=== PATIENT | male | born 1945 | race Caucasian/White ===

== ENCOUNTER 2021-04-16 18:01 | Inpatient (IN) | payer MEDICARE, OTHER ==
[~2021-04-16] VITALS: Ht 175.3 cm; Wt 91.8 kg
[~2021-04-16 18:01] MED LIST: CETI5; ESOM20 PO; RAPAFLOW PO
[2021-04-16 18:49] LABS: BASOPHILS ABSOLUTE AUTO 0.04 K/mm3 (0.00-0.23); BASOPHILS PERCENT AUTO 0 % (0-2); EOSINOPHILS ABSOLUTE AUTO 0.03 K/mm3 (0.00-0.68); EOSINOPHILS PERCENT AUTO 0 % (0-6); Hematocrit 45.3 % (37.0-53.0); Hemoglobin 16.8 g/dL (13.5-17.5); IMMATURE GRAN ABSOLUTE AUTO 0.03 K/mm3 (0.00-0.10); IMMATURE GRAN PERCENT AUTO 0 % (0-1); LYMPHOCYTES ABSOLUTE AUTO 2.24 K/mm3 (0.84-5.20); LYMPHOCYTES PERCENT AUTO 24 % (21-46); MONOCYTES PERCENT AUTO 10 % (4-13); Mean Corpuscular HGB 31.7 pg (26.0-34.0); Mean Corpuscular HGB Conc 37.1 g/dL (31.5-36.5); Mean Corpuscular Volume 86 fL (80-100); Mean Platelet Volume 10.5 fL (9.1-12.4); NEUTROPHILS ABSOLUTE AUTO 6.27 K/mm3 (1.96-9.15); NEUTROPHILS PERCENT AUTO 66 % (41-73); Platelet Count 233 K/mm3 (150-400); RDW Coefficient Variation 12.2 % (11.7-14.2); RDW Standard Deviation 37.5 fL (35.1-46.3); White Blood Cell Count 9.51 K/mm3 (4.00-11.30)
[2021-04-16 19:11] LABS: Albumin, Blood 3.1 g/dL (3.4-5.0); Albumin/Globulin Ratio 0.8 (0.8-1.8); Bilirubin, Total 0.9 mg/dL (0.1-1.0); Bun/Creatinine Ratio 20.5 (12.0-20.0); Calcium, Blood 9.4 mg/dL (8.5-10.1); Creatinine, Blood 2.39 mg/dL (0.60-1.20); Globulin, Blood 3.9 g/dL (2.2-4.0); Potassium, Blood 2.7 mmol/L (3.5-5.5)
[2021-04-16 20:33] LABS: Magnesium, Blood 2.5 mg/dL (1.6-2.4); Phosphorus, Blood 3.6 mg/dL (2.5-4.9)
[2021-04-16 20:51] LABS: Source, Urine Voided
[2021-04-16 20:53] LABS: Bilirubin, Urine Neg (Neg); Blood, Urine Neg (Neg); Glucose Qualitative, Urine 4+ (Neg); Ketones, Urine Neg (Neg); Leukocyte Esterase, Urine Neg (Neg); Nitrite, Urine Neg (Neg); Protein, Urine Neg (Neg); Urobilinogen, Urine NORM (Normal)
[2021-04-16] MEDS ORDERED: BUME2 PO (20:54)
[2021-04-16] MEDS ORDERED: ALFUZOSIN HCL10 MG PO (20:54)
[2021-04-16 20:55] LABS: Appearance, Urine Clear (Clear); Color, Urine Yellow (P-Yellow)
[2021-04-16] MEDS ORDERED: Avodart0.5 MG PO (20:55)
[2021-04-16] MEDS ORDERED: METO5 PO (20:55)
[2021-04-16] MEDS ORDERED: Nexium40 MG PO (20:55)
[2021-04-16] MEDS ORDERED: FINA5 PO ×2 (20:55)
[2021-04-16] MEDS ORDERED: KLOR-CON 1010 ME4 PO (20:56)
[2021-04-16] MEDS ORDERED: LOSARTAN POTASS25 M2 PO (20:56)
[2021-04-16 22:27] LABS: Glucose, Blood 701 mg/dL (70-99)
[2021-04-16 22:37] LABS: Potassium, Blood 2.4 mmol/L (3.5-5.5)
[2021-04-16 22:56] LABS: Bun/Creatinine Ratio 19.9 (12.0-20.0); Calcium, Blood 9.2 mg/dL (8.5-10.1); Creatinine, Blood 2.46 mg/dL (0.60-1.20)
[2021-04-17 00:28] LABS: Glucose, Blood 581 mg/dL (70-99)
--- NOTE | 2021-04-17 00:30 | NUR ---
PT ARRIVAL PT ARRIVES FROM ER AT THIS TIME. PT TRANSFERS FROM ER GURNEY TO OUR GURNEY WITH MINIMAL ASSIST. PT DENIES DIZZINESS. PT IS ALERT AND ORIENTED. PT DENIES PAIN OR DISCOMFORT. LUNG SOUNDS ARE CLEAR THROUGHOUT. BOWEL TONES ACTIVE. SEE SHIFT ASSESSMENT.
[2021-04-17 00:32] LABS: SARS-Cov-2 (COVID-19) PCR, MMC NEGATIVE (NEGATIVE)
[2021-04-17 02:17] LABS: Bun/Creatinine Ratio 20.3 (12.0-20.0); Calcium, Blood 9.1 mg/dL (8.5-10.1); Creatinine, Blood 2.31 mg/dL (0.60-1.20); Potassium, Blood 2.8 mmol/L (3.5-5.5)
--- NOTE | 2021-04-17 06:24 | NUR ---
SHIFT SUMMARY PT SLEPT ON AND OFF THROUGHOUT THE NIGHT. REMAINS ALERT AND ORIENTED. PT ON INSULIN GTT AT 3UNITS/HR. LUNGS REMAIN CLEAR, OCCASIONAL COUGH. BOWEL TONES ACTIVE. PT USES CALL LIGHT APPROPRIATELY. STANDS AT BEDSIDE WITH MINIMAL ASSISTANCE TO USE URINAL. SHIFT OUTPUT OF 600ML. URINE IS CLEAR/YELLOW. PT DENIES PAIN OR DISCOMFORT. WILL REPORT TO ONCOMING RN.
[2021-04-17 06:35] LABS: Bun/Creatinine Ratio 20.4 (12.0-20.0); Calcium, Blood 8.9 mg/dL (8.5-10.1); Creatinine, Blood 2.11 mg/dL (0.60-1.20); Potassium, Blood 2.8 mmol/L (3.5-5.5)
--- NOTE | 2021-04-17 13:33 | NUR ---
WHILE MEASURING CARDIAC INTERVALS, NOTED THAT QT WAS ON THE LONG SIDE AT 0.48. CALL TO DR BRAVO REGARDING THIS. DR ORDERED MAG LEVEL AND STATES HE WILL REVIEW EMAR FOR POSSIBLE PROLONGING MEDS. NO ACUTE NEEDS OR CONCERNS AT THIS TIME.
--- NOTE | 2021-04-17 13:54 | NUR ---
REPORT CALLED TO WESLEY MORA. PT TRANSFERRED TO ROOM 303 VIA WHEEL CHAIR. NO ACUTE NEEDS OR CONCERNS.
--- NOTE | 2021-04-17 13:58 | NUR ---
Assumed Care Received report from Juanis, COMBINER OPERATOR. Arrived to unit via w/c with 2 bags of belongings. Self transferred from w/c to bed independently. A/Ox4. SCD's hooked. Bed in lowest position, call light near. Water given. WCTM.
[2021-04-17 15:29] LABS: Magnesium, Blood 2.5 mg/dL (1.6-2.4); Potassium, Blood 2.6 mmol/L (3.5-5.5)
--- NOTE | 2021-04-17 16:12 | NUR ---
40 MEQ POTASSIUM IV REPEAT MAG/K REVEALED 2.5/2.[address] URIBE NOTIFIED PER HIS REQUEST. RECEIVED T.O. FROM DR. URIBE TO GIVE 40 MEQ POTASSIUM IV ONCE. EMAR UPDATED.
--- NOTE | 2021-04-17 17:13 | NUR ---
Shift Summary A/Ox4, pleasant and cooperative with care. Denies chest pain, nausea, vomiting. Up with SBA, uses urinal independently. Tolerating PO well. Blood sugars remain high, medicated per EMAR. NS @ 75 continuous. Upon discharge, patient and will require diabetes education and info on ADA diet because cooks most of the meals at home. No acute changes since assumption of care. WCTM.
--- NOTE | 2021-04-17 21:35 | NUR ---
HOSPITALIST CONTACTED REGARDING PT'S CBG OF 367. ORDER FOR 6 UNITS OF HUMALOG OBTAINED AND ADMINISTER. WILL CONTINUE TO MONITOR PT'S CBG.
--- NOTE | 2021-04-17 22:00 | NUR ---
ASSUMED CARE. PRECEPTORING CLAIR OLSON. AGREED WITH HER ASSESSMENT. PATIENT DENIES ANY CONCERNS OR NEEDS AT THIS TIME. CALL LIGHT IN REACH.
[2021-04-18 04:51] LABS: Hematocrit 39.1 % (37.0-53.0); Hemoglobin 14.2 g/dL (13.5-17.5)
[2021-04-18 05:11] LABS: Albumin, Blood 2.3 g/dL (3.4-5.0); Anion Gap 4 mmol/L (6-16); Blood Urea Nitrogen 32 mg/dL (8-24); Bun/Creatinine Ratio 23.5 (12.0-20.0); CO2, Blood 33 mmol/L (21-32); Calcium, Blood 8.2 mg/dL (8.5-10.1); Chloride, Blood 100 mmol/L (98-108); Creatinine, Blood 1.36 mg/dL (0.60-1.20); Glomerular Filtration Rate 51 (60-); Glucose, Blood 241 mg/dL (70-99); Magnesium, Blood 2.7 mg/dL (1.6-2.4); Phosphorus, Blood 2.2 mg/dL (2.5-4.9); Potassium, Blood 2.9 mmol/L (3.5-5.5); Sodium, Blood 137 mmol/L (136-145)
--- NOTE | 2021-04-18 06:04 | NUR ---
SUBSTATION DESIGNER SUMMARY ADMITTED FOR DEHYDRATION. PT IS FULL CODE. PT HAD A HIGH BLOOD SUGAR OF 367 - ORDER OBTAINED FOR 6 UNITS OF HUMALOG WITH IMPROVEMENT IN CBG TO 266 OVER 5 HOURS. PT POTASSIUM WAS LOW SO AN ORDER FOR THREE IV POTASSIUM CHLORIDE OBTAINED AND ADMINISTERED. PT HAD NO COMPLAINTS OF CHEST PAIN AND RESTED COMFORTABLY THROUGHOUT THE SHIFT. NO OTHER CONCERNS THIS SHIFT.
--- NOTE | 2021-04-18 18:07 | NUR ---
SHIFT SUMMARY CONTINUED ELECTROLYTE REPLACEMENT. SELF ADMINISTERED INSULIN X3 AND TESTED BLOOD GLUCOSE WITH GLUCOMETER X1.
[2021-04-19 04:50] LABS: Hematocrit 38.2 % (37.0-53.0)
[2021-04-19 05:10] LABS: Albumin, Blood 2.2 g/dL (3.4-5.0); Anion Gap 5 mmol/L (6-16); Blood Urea Nitrogen 24 mg/dL (8-24); Bun/Creatinine Ratio 20.7 (12.0-20.0); CO2, Blood 27 mmol/L (21-32); Calcium, Blood 7.6 mg/dL (8.5-10.1); Chloride, Blood 107 mmol/L (98-108); Creatinine, Blood 1.16 mg/dL (0.60-1.20); Glomerular Filtration Rate >60 (60-); Glucose, Blood 175 mg/dL (70-99); Magnesium, Blood 2.3 mg/dL (1.6-2.4); Phosphorus, Blood 2.2 mg/dL (2.5-4.9); Potassium, Blood 2.9 mmol/L (3.5-5.5); Sodium, Blood 139 mmol/L (136-145)
[2021-04-19] MEDS ORDERED: POTCHL20ER PO (11:53)
[2021-04-19] MEDS ORDERED: INSULANPEN SC (11:54)
[2021-04-19] MEDS ORDERED: SPIR50 PO (12:03)
[2021-04-19] MEDS ORDERED: INSULIN LI100 UNIT/6 SC (12:38)
--- NOTE | 2021-04-19 14:46 | NUR ---
DISCHARGE NOTE PT IS AOX4. PT'S IVS REMOVED BY THIS RN PER DOCUMENTATION. DC INSTRUCTIONS AND MEDICATIONS REVIEWED WITH PT BY THIS RN AND PHARMACIST. PT PRACTICED SELF-ADMINISTERING INSULING DURING LUNCH DOSE. PT DRESSED SELF IN HOME CLOTHING. BELONGINGS GATHERED FROM ROOM AND HOME MEDICATION RETURNED TO PT FROM MEDICATION DRAWER. PT ASSISTED INTO WHEELCHAIR BY BUS STEWARD AND LEFT BUILDING TO PRIVATE VEHICLE.
[2021-04-26 00:10] LABS: ALDOS/RENIN RATIO 0.9 (0.0-30.0); ALDOSTERONE 16.6 ng/dL (0.0-30.0)
== END 2021-04-19 14:32 | disposition home or self-care (01) | DRG 638 ==
LOC: ER 18:01 → ICUW 22:41 → ICUE 04-17 00:03 → ER 04-17 00:03 → ICUW 04-17 00:03 → ICUE 04-17 00:26 → MEDS 04-17 13:50
PROVIDERS: Emergency Medicine; Family Medicine; Internal Medicine Nephrology; Physician Assistant; ADMIT Internal Medicine
DX: E11.65 Type 2 diabetes mellitus with hyperglycemia (principal); N17.9 Acute kidney failure, unspecified; E87.1 Hypo-osmolality and hyponatremia; E87.6 Hypokalemia; E78.1 Pure hyperglyceridemia; Z85.118 Personal history of other malignant neoplasm of bronchus and lung; Z88.5 Allergy status to narcotic agent; K21.9 Gastro-esophageal reflux disease without esophagitis; Z87.891 Personal history of nicotine dependence; I12.9 Hypertensive chronic kidney disease with stage 1 through stage 4 chronic kidney disease, or unspecified chronic kidney disease; Z79.899 Other long term (current) drug therapy; E86.0 Dehydration; Z90.49 Acquired absence of other specified parts of digestive tract; E83.39 Other disorders of phosphorus metabolism; N18.30 Chronic kidney disease, stage 3 unspecified
CPT/HCPCS: 36415; 76770; 80048; 80053; 80069; 81003; 82088; 82947; 83036; 83735; 83930; 84100; 84132; 84244; 85014; 85018; 85025; 93005; 93010; 96361; 96365; 99285-25; A9270; J1650; J1815; J3480; J7030; J7050; J7060; U0004

== ENCOUNTER 2021-12-16 11:26 | Emergency (ER) | payer MEDICARE, OTHER ==
[~2021-12-16] VITALS: Ht 175.3 cm; Wt 97.5 kg
[~2021-12-16 11:26] MED LIST changes: +ALFUZOSIN HCL10 MG PO; +Avodart0.5 MG PO; +BUME2 PO; +FINA5 PO; +INSULANPEN SC; +INSULIN LI100 UNIT/6 SC; +KLOR-CON 1010 ME4 PO; +LOSARTAN POTASS25 M2 PO; +METO5 PO; +Nexium40 MG PO; +POTCHL20ER PO; +SPIR50 PO
[2021-12-16] MEDS ORDERED: KLOR-CON 1010 ME1 PO (12:26)
[2021-12-16] MEDS ORDERED: BUMETANIDE2 M6 PO (12:27)
[2021-12-16 12:28] LABS: Influenza A, PCR NEGATIVE (NEGATIVE); Influenza B, PCR NEGATIVE (NEGATIVE); Resp Syncytial Virus, PCR NEGATIVE (NEGATIVE); SARS-Cov-2 (COVID-19) PCR, MMC NEGATIVE (NEGATIVE)
[2021-12-17] MEDS ORDERED: [UNRECOGNIZED DRUG - OTHER] PO (10:50)
[2021-12-17] MEDS ORDERED: KERENDIA10 MG PO (10:51)
[2021-12-17] MEDS ORDERED: METO5 PO (10:52)
[2021-12-17] MEDS ORDERED: KLOR-CON M1010 MEQ PO (10:56)
== END 2021-12-16 13:14 | disposition home or self-care (01) ==
LOC: ER 11:26
PROVIDERS: Physician Assistant
DX: Z20.822 Contact with and (suspected) exposure to COVID-19 (principal); K21.9 Gastro-esophageal reflux disease without esophagitis; Z88.5 Allergy status to narcotic agent; Z79.899 Other long term (current) drug therapy; Z79.4 Long term (current) use of insulin
CPT/HCPCS: 0241U

== ENCOUNTER 2021-12-17 09:45 | Emergency (ER) | payer MEDICARE, OTHER ==
[~2021-12-17] VITALS: Ht 172.7 cm; Wt 98.0 kg
[~2021-12-17 09:45] MED LIST changes: +BUMETANIDE2 M6 PO; +KLOR-CON 1010 ME1 PO
[2021-12-17] MEDS ORDERED: [UNRECOGNIZED DRUG - OTHER] PO (10:50)
[2021-12-17] MEDS ORDERED: KERENDIA10 MG PO (10:51)
[2021-12-17] MEDS ORDERED: METO5 PO (10:52)
[2021-12-17] MEDS ORDERED: KLOR-CON M1010 MEQ PO (10:56)
[2021-12-17 10:58] LABS: Influenza A, PCR NEGATIVE (NEGATIVE); Influenza B, PCR NEGATIVE (NEGATIVE); Resp Syncytial Virus, PCR NEGATIVE (NEGATIVE)
[2021-12-17 11:01] LABS: SARS-Cov-2 (COVID-19) PCR, MMC POSITIVE (NEGATIVE)
== END 2021-12-17 12:31 | disposition home or self-care (01) ==
LOC: ER 09:45
PROVIDERS: Physician Assistant
DX: U07.1 COVID-19 (principal); K21.9 Gastro-esophageal reflux disease without esophagitis; Z88.5 Allergy status to narcotic agent; Z79.4 Long term (current) use of insulin; Z79.899 Other long term (current) drug therapy
CPT/HCPCS: 0241U

== ENCOUNTER → 2022-04-26 | Outpatient (CLI) | payer MEDICARE, OTHER ==
[~2022-04-26] MED LIST changes: +KERENDIA10 MG PO; +KLOR-CON M1010 MEQ PO; +[UNRECOGNIZED DRUG - OTHER] PO
[2022-04-26 14:23] LABS: BASOPHILS ABSOLUTE AUTO 0.03 K/mm3 (0.00-0.23); BASOPHILS PERCENT AUTO 0 % (0-2); EOSINOPHILS ABSOLUTE AUTO 0.03 K/mm3 (0.00-0.68); EOSINOPHILS PERCENT AUTO 0 % (0-6); Hematocrit 42.2 % (37.0-53.0); Hemoglobin 14.6 g/dL (13.5-17.5); IMMATURE GRAN ABSOLUTE AUTO 0.05 K/mm3 (0.00-0.10); IMMATURE GRAN PERCENT AUTO 1 % (0-1); LYMPHOCYTES ABSOLUTE AUTO 0.87 K/mm3 (0.84-5.20); LYMPHOCYTES PERCENT AUTO 8 % (21-46); MONOCYTES ABSOLUTE AUTO 0.54 K/mm3 (0.16-1.47); MONOCYTES PERCENT AUTO 5 % (4-13); Mean Corpuscular HGB 31.3 pg (26.0-34.0); Mean Corpuscular HGB Conc 34.6 g/dL (31.5-36.5); Mean Corpuscular Volume 91 fL (80-100); Mean Platelet Volume 9.5 fL (9.1-12.4); NEUTROPHILS ABSOLUTE AUTO 9.46 K/mm3 (1.96-9.15); NEUTROPHILS PERCENT AUTO 86 % (41-73); Platelet Count 192 K/mm3 (150-400); RDW Coefficient Variation 13.2 % (11.7-14.2); RDW Standard Deviation 43.3 fL (35.1-46.3); Red Blood Cell Count 4.66 M/mm3 (4.30-5.90); White Blood Cell Count 10.98 K/mm3 (4.00-11.30)
[2022-04-26 14:34] LABS: Albumin, Blood 3.6 g/dL (3.4-5.0); Albumin/Globulin Ratio 0.9 (0.8-1.8); Bilirubin, Total 0.3 mg/dL (0.1-1.0); Bun/Creatinine Ratio 18.4 (12.0-20.0); Calcium, Blood 8.9 mg/dL (8.5-10.1); Creatinine, Blood 1.36 mg/dL (0.60-1.20); Globulin, Blood 3.9 g/dL (2.2-4.0); Potassium, Blood 4.3 mmol/L (3.5-5.5); Total Protein, Blood 7.5 g/dL (6.4-8.2)
== END | disposition home or self-care (01) ==
LOC: LAB 14:19 → LAB SHORT 14:19
PROVIDERS: General Practice
DX: M79.605 Pain in left leg (principal); R22.40 Localized swelling, mass and lump, unspecified lower limb; I82.442 Acute embolism and thrombosis of left tibial vein; I82.452 Acute embolism and thrombosis of left peroneal vein
CPT/HCPCS: 80053; 83880; 85025; 93971

== ENCOUNTER 2022-06-09 11:38 | Emergency (ER) | payer MEDICARE, OTHER ==
[2022-06-09] MEDS ORDERED: KEYTRUDA100 MG/41 IV (13:30)
[2022-06-09] MEDS ORDERED: Prednisone10 MG PO (13:31)
[2022-06-09] MEDS ORDERED: CALCIUM CIT 311 EAC7 PO (13:31)
[2022-06-09] MEDS ORDERED: KERENDIA10 MG PO (13:31)
[2022-06-09] MEDS ORDERED: XARELTO20 MG PO (13:31)
[2022-06-09] MEDS ORDERED: BUME2 PO (13:31)
[2022-06-09] MEDS ORDERED: FINA5 PO (13:32)
[2022-06-09] MEDS ORDERED: ALFU10 PO (13:32)
[2022-06-09] MEDS ORDERED: INSULANI (13:32)
== END 2022-06-09 14:45 | disposition home or self-care (01) ==
DX: R06.02 Shortness of breath (principal); C34.90 Malignant neoplasm of unspecified part of unspecified bronchus or lung; Z20.822 Contact with and (suspected) exposure to COVID-19; Z88.5 Allergy status to narcotic agent; Z79.899 Other long term (current) drug therapy

== ENCOUNTER 2022-06-13 13:24 | Inpatient (IN) | payer MEDICARE, OTHER ==
[~2022-06-13] VITALS: Ht 175.3 cm; Wt 68.5 kg
[~2022-06-13 13:24] MED LIST changes: +ALFU10 PO; +CALCIUM CIT 311 EAC7 PO; +INSULANI SC; +KEYTRUDA100 MG/41 IV; -KLOR-CON 1010 ME1 PO; +Prednisone10 MG PO; +XARELTO20 MG PO
[2022-06-13 14:10] LABS: BASOPHILS ABSOLUTE AUTO 0.14 K/mm3 (0.00-0.23); BASOPHILS PERCENT AUTO 1 % (0-2); EOSINOPHILS ABSOLUTE AUTO 0.81 K/mm3 (0.00-0.68); EOSINOPHILS PERCENT AUTO 4 % (0-6); Hematocrit 41.2 % (37.0-53.0); Hemoglobin 13.7 g/dL (13.5-17.5); IMMATURE GRAN ABSOLUTE AUTO 0.37 K/mm3 (0.00-0.10); IMMATURE GRAN PERCENT AUTO 2 % (0-1); LYMPHOCYTES ABSOLUTE AUTO 3.73 K/mm3 (0.84-5.20); LYMPHOCYTES PERCENT AUTO 18 % (21-46); MONOCYTES ABSOLUTE AUTO 1.74 K/mm3 (0.16-1.47); MONOCYTES PERCENT AUTO 9 % (4-13); Mean Corpuscular HGB 30.4 pg (26.0-34.0); Mean Corpuscular HGB Conc 33.3 g/dL (31.5-36.5); Mean Corpuscular Volume 91 fL (80-100); Mean Platelet Volume 10.1 fL (9.1-12.4); NEUTROPHILS ABSOLUTE AUTO 13.69 K/mm3 (1.96-9.15); NEUTROPHILS PERCENT AUTO 67 % (41-73); Platelet Count 178 K/mm3 (150-400); RDW Coefficient Variation 13.8 % (11.7-14.2); RDW Standard Deviation 46.5 fL (35.1-46.3); Red Blood Cell Count 4.51 M/mm3 (4.30-5.90); White Blood Cell Count 20.48 K/mm3 (4.00-11.30)
[2022-06-13 14:16] LABS: Albumin/Globulin Ratio 0.8 (0.8-1.8); Bilirubin, Total 0.5 mg/dL (0.1-1.0); Bun/Creatinine Ratio 26.2 (12.0-20.0); Calcium, Blood 9.4 mg/dL (8.5-10.1); Creatinine, Blood 0.99 mg/dL (0.60-1.20); Globulin, Blood 3.7 g/dL (2.2-4.0); Potassium, Blood 4.1 mmol/L (3.5-5.5); Total Protein, Blood 6.7 g/dL (6.4-8.2)
[2022-06-13] MEDS ORDERED: BUTALBITAL-ASA1 EACH PO (16:55)
[2022-06-13] MEDS ORDERED: ROSU5 PO (16:57)
[2022-06-13] MEDS ORDERED: METOPROLOL TART25 MG PO (16:57)
[2022-06-13] MEDS ORDERED: KEYTRUDA100 MG/41 IV (17:01)
[2022-06-13] MEDS ORDERED: KERENDIA10 MG PO (17:02)
[2022-06-13] MEDS ORDERED: ALFU10 PO (17:03)
[2022-06-14 04:57] LABS: BASOPHILS ABSOLUTE AUTO 0.08 K/mm3 (0.00-0.23); BASOPHILS PERCENT AUTO 0 % (0-2); EOSINOPHILS ABSOLUTE AUTO 0.57 K/mm3 (0.00-0.68); EOSINOPHILS PERCENT AUTO 3 % (0-6); Hematocrit 38.6 % (37.0-53.0); Hemoglobin 12.9 g/dL (13.5-17.5); IMMATURE GRAN ABSOLUTE AUTO 0.29 K/mm3 (0.00-0.10); IMMATURE GRAN PERCENT AUTO 2 % (0-1); LYMPHOCYTES ABSOLUTE AUTO 3.36 K/mm3 (0.84-5.20); LYMPHOCYTES PERCENT AUTO 19 % (21-46); MONOCYTES ABSOLUTE AUTO 1.64 K/mm3 (0.16-1.47); MONOCYTES PERCENT AUTO 9 % (4-13); Mean Corpuscular HGB 30.6 pg (26.0-34.0); Mean Corpuscular HGB Conc 33.4 g/dL (31.5-36.5); Mean Corpuscular Volume 92 fL (80-100); Mean Platelet Volume 10.5 fL (9.1-12.4); NEUTROPHILS ABSOLUTE AUTO 11.87 K/mm3 (1.96-9.15); NEUTROPHILS PERCENT AUTO 67 % (41-73); Platelet Count 168 K/mm3 (150-400); RDW Coefficient Variation 13.9 % (11.7-14.2); RDW Standard Deviation 46.3 fL (35.1-46.3); Red Blood Cell Count 4.22 M/mm3 (4.30-5.90); White Blood Cell Count 17.81 K/mm3 (4.00-11.30)
[2022-06-14 05:37] LABS: Bun/Creatinine Ratio 27.6 (12.0-20.0); Calcium, Blood 9.5 mg/dL (8.5-10.1); Creatinine, Blood 1.05 mg/dL (0.60-1.20); Potassium, Blood 3.8 mmol/L (3.5-5.5); Total Protein, Blood 6.3 g/dL (6.4-8.2)
--- NOTE | 2022-06-14 08:12 | NUR ---
NEW ADMIT/HERBOLOGIST SUMMARY PT ARRIVED T/ROOM AND XFERED T/BED INDPENDENTLY. AT BEDSIDE. PT A/OX4. NOTED PT SHORT OF BREATH AND RAPID RESPIRATIONS--SATURATIONS >90% ON RA. PT ADMIT W/RT PLEURAL EFFUSION AND PLAN FOR THORACENTESIS. PT HX OF LEFT DVT, GERD, DMT2, AND GERD. PT ABLE TO PROVIDE MEDICATION RECORD/HX. PT REPORTS HE STOPPED TAKING CRESTOR BECAUSE HE BELIEVED IT WAS CAUSING HIM TO HAVE HEADACHES. PT ON TELE--SINUS HIREN IN THE 50'S W/FIRST DEGREE AV BLOCK; ONE EPISODE OF A 2 SECOND PAUSE. ORIENTED PT T/ROOM AND CALL LIGHT. PT ABLE TO MAKE NEEDS KNOWN. HX OF URINARY INCONTIENENCE--BRIEF LINERS AT HOME. PT AMBULATES INDEPENDENTLY AT HOME AND SOMETIMES USES A CANE. CALL LIGHT IN REACH.
--- NOTE | 2022-06-14 08:27 | NUR ---
THIS RN CALLED DR. MCCLOUD - NO ANSWER PLANNED THOROCENTISIS THIS SHIFT, NO LABS DRAWN. WAITING FOR CALL BACK AT THIS TIME.
[2022-06-14 09:30] LABS: Anti-Xa UFH, PHA Monitoring 0.66 IU/mL; International Normalized Ratio 1.12; Prothrombin Time Results 11.7 Sec (9.7-11.5)
--- NOTE | 2022-06-14 12:03 | NUR ---
PT RETURNED FROM [facility] @ THIS TIME, REPORTED 1L REMOVED-SENT SPECIMEN TO LAB
[2022-06-14 12:44] LABS: Automated BF RBC Count 1.435 M/mm3 (0-0); Automated BF WBC Count 2.714 K/mm3 (0-999); RBC Count, Body Fluid 1435000 /mm3 (0-0)
[2022-06-14 12:54] LABS: Body Fluid WBC Count 2714 /mm3 (0-999)
[2022-06-14 12:56] LABS: Protein, Body Fluid 4.2 g/dL
[2022-06-14 12:57] LABS: Glucose, Body Fluid 168 mg/dL
[2022-06-14 13:09] LABS: Lactate Dehydrogenase, Body Fl 1484 U/L
[2022-06-14 13:31] LABS: Appearance, Body Fluid Bloody (Clear); Color, Body Fluid Red (None-Yellow); Total Cell Count, Body Fluid 100
--- NOTE | 2022-06-14 19:31 | NUR ---
SHIFT SUMMARY PT A&OX4 AND IN PLEASENT MOOD T/O SHIFT. THOROCENTIS COMPLETE THIS SHIFT, 1L REMOVED, SPECIMEN SENT TO LAB-IV ABX INITIATED. FAMILY IN TO SEE PT DURING VISITING HOURS. TOLERATING PO INTAKE. HTN NOTED-OTHER VSS. CALL LIGHT W/IN REACH. TELE IN PLACE. COUGH SEEMS TO SOUND LOOSE, PT C/O UNABLE TO CLEAR MUCOUS, LUNG SOUNDS IMPROVE POST THORO.
--- NOTE | 2022-06-15 04:54 | NUR ---
WOOL HAT HYDRAULICKER SUMMARY NO ACUTE EVENTS. PT RESTED T/O THE NIGHT. PT REPORTS BEING ABLE TO BREATHE BETTER SINCE THORACENTESIS; HOWEVER NOT AT BASELINE. NOTED PT VERY SOB W/ACTIVITY BUT SAT REMAINS >90%. NE REFUSED CRESTOR AGAIN; STOPPED TAKING 1-2 WEEKS AGO. PT IS ABLE TO MAKE NEEDS KNOWN; CALL APPROPRIATELY. CALL LIGHT IN REACH.
[2022-06-15 05:04] LABS: BASOPHILS ABSOLUTE AUTO 0.08 K/mm3 (0.00-0.23); BASOPHILS PERCENT AUTO 0 % (0-2); EOSINOPHILS PERCENT AUTO 3 % (0-6); Hematocrit 37.8 % (37.0-53.0); Hemoglobin 12.7 g/dL (13.5-17.5); IMMATURE GRAN ABSOLUTE AUTO 0.23 K/mm3 (0.00-0.10); IMMATURE GRAN PERCENT AUTO 1 % (0-1); LYMPHOCYTES ABSOLUTE AUTO 3.07 K/mm3 (0.84-5.20); LYMPHOCYTES PERCENT AUTO 17 % (21-46); MONOCYTES ABSOLUTE AUTO 1.76 K/mm3 (0.16-1.47); MONOCYTES PERCENT AUTO 10 % (4-13); Mean Corpuscular HGB 30.1 pg (26.0-34.0); Mean Corpuscular HGB Conc 33.6 g/dL (31.5-36.5); Mean Corpuscular Volume 90 fL (80-100); Mean Platelet Volume 10.5 fL (9.1-12.4); NEUTROPHILS ABSOLUTE AUTO 12.62 K/mm3 (1.96-9.15); NEUTROPHILS PERCENT AUTO 69 % (41-73); Platelet Count 160 K/mm3 (150-400); RDW Coefficient Variation 13.6 % (11.7-14.2); RDW Standard Deviation 44.6 fL (35.1-46.3); Red Blood Cell Count 4.22 M/mm3 (4.30-5.90); White Blood Cell Count 18.26 K/mm3 (4.00-11.30)
[2022-06-15 05:56] LABS: Albumin, Blood 2.7 g/dL (3.4-5.0); Anion Gap 6 mmol/L (6-16); Blood Urea Nitrogen 30 mg/dL (8-24); CO2, Blood 28 mmol/L (21-32); Calcium, Blood 9.3 mg/dL (8.5-10.1); Chloride, Blood 105 mmol/L (98-108); Glomerular Filtration Rate 78 (60-); Glucose, Blood 167 mg/dL (70-99); Phosphorus, Blood 3.6 mg/dL (2.5-4.9); Potassium, Blood 3.5 mmol/L (3.5-5.5); Sodium, Blood 139 mmol/L (136-145)
--- NOTE | 2022-06-15 17:56 | NUR ---
SHIFT SUMMARY PT A&OX4 AND IN PLEASENT MOOD T/O SHIFT. SHOWERED THIS SHIFT. TOLERATING PO INTAKE WELL. FAMILY IN TO SEE PT T/O SHIFT. SOB W/ ACTIVITY NOTED. INCREASED COUGH, MEDICATED PER EMAR. CALL LIGHT W/IN REACH. HTN NOTED-OTHER VSS. TELE IN PLACE-SR. RA.
[2022-06-15] MEDS ORDERED: AZIT250 PO (22:52)
[2022-06-16 04:58] LABS: BASOPHILS ABSOLUTE AUTO 0.06 K/mm3 (0.00-0.23); BASOPHILS PERCENT AUTO 0 % (0-2); EOSINOPHILS ABSOLUTE AUTO 0.51 K/mm3 (0.00-0.68); EOSINOPHILS PERCENT AUTO 3 % (0-6); Hematocrit 38.1 % (37.0-53.0); Hemoglobin 12.9 g/dL (13.5-17.5); IMMATURE GRAN ABSOLUTE AUTO 0.22 K/mm3 (0.00-0.10); IMMATURE GRAN PERCENT AUTO 1 % (0-1); LYMPHOCYTES ABSOLUTE AUTO 3.35 K/mm3 (0.84-5.20); LYMPHOCYTES PERCENT AUTO 19 % (21-46); MONOCYTES ABSOLUTE AUTO 1.92 K/mm3 (0.16-1.47); MONOCYTES PERCENT AUTO 11 % (4-13); Mean Corpuscular HGB 30.3 pg (26.0-34.0); Mean Corpuscular HGB Conc 33.9 g/dL (31.5-36.5); Mean Corpuscular Volume 89 fL (80-100); Mean Platelet Volume 10.6 fL (9.1-12.4); NEUTROPHILS ABSOLUTE AUTO 11.89 K/mm3 (1.96-9.15); NEUTROPHILS PERCENT AUTO 66 % (41-73); Platelet Count 161 K/mm3 (150-400); RDW Coefficient Variation 13.6 % (11.7-14.2); RDW Standard Deviation 44.4 fL (35.1-46.3); Red Blood Cell Count 4.26 M/mm3 (4.30-5.90); White Blood Cell Count 17.95 K/mm3 (4.00-11.30)
--- NOTE | 2022-06-16 05:03 | NUR ---
BUTTER WRAPPER SUMMARY NO ACUTE EVENTS. PT IS LOOKING FORWARD T/GOING HOME (06/16/22). PT ON TELE-SINUS W/BBB; 69 BPM. PT WILL HAVE PERIODIC EPISODES OF SINUS HIREN WHILE SLEEPING IN 30'S-40'S. FEWER EVENTS DURING THIS SHIFT THAN PREVIOUS BUTTER WRAPPER. PT CONTINUES T/COUGH BUT REPORTS HE FEELS HE IS BREATHING BETTER. PT W/STILL GET SOB W/ACTIVITY BUT O2 SATS REMAIN >90%. PT ABLE TO MAKE NEEDS KNOWN. CALL APPROPRIATELY. CALL LIGHT IN REACH.
[2022-06-16 05:31] LABS: Albumin, Blood 2.6 g/dL (3.4-5.0); Anion Gap 9 mmol/L (6-16); Blood Urea Nitrogen 31 mg/dL (8-24); Bun/Creatinine Ratio 28.2 (12.0-20.0); CO2, Blood 26 mmol/L (21-32); Calcium, Blood 8.8 mg/dL (8.5-10.1); Chloride, Blood 103 mmol/L (98-108); Glomerular Filtration Rate 70 (60-); Glucose, Blood 147 mg/dL (70-99); Phosphorus, Blood 3.5 mg/dL (2.5-4.9); Potassium, Blood 3.4 mmol/L (3.5-5.5); Sodium, Blood 138 mmol/L (136-145)
[2022-06-16] MEDS ORDERED: BENZ100A PO (10:48)
[2022-06-16] MEDS ORDERED: GUAI600T33 PO (10:49)
[2022-06-16] MEDS ORDERED: BUME2 PO (10:50)
[2022-06-16] MEDS ORDERED: CEPH500 PO (10:51)
[2022-06-16] MEDS ORDERED: LACT PO (11:17)
[2022-06-16] MEDS ORDERED: INSULANI SC (11:19)
--- NOTE | 2022-06-16 11:35 | NUR ---
DISCHARGE NOTE- PT, SPOUSE AND SON ALL PRESENT FOR DICHARGE TEACHING. MEDS FAXED TO [facility], FOLLOW UP APPOINTMENTS SCHEDULED. ALL PRESENT VERBALLY ACKNOWLEDGED UNDERSTANDING OF DISCHARGE INSTRUCTIONS. NO FURTHER QUESTIONS AT THIS TIME. PT IV AND TELE DC'D BY THE ASSEMBLING MOTOR BUILDER II PT SPOUSE ASSITING PT TO GET READY AND HE WILL BE ESCORTED OUT BY STAFF.
== END 2022-06-16 11:43 | disposition home or self-care (01) | DRG 180 ==
LOC: ER 13:24 → MEDS 13:25 → ERHOLD 13:25 → MEDS 21:47
PROVIDERS: Physician Assistant; ADMIT Family Medicine
PROC: 0W993ZZ Drainage of Right Pleural Cavity, Percutaneous Approach (ICD-10-PCS; principal; 2022-06-14)
DX: C34.31 Malignant neoplasm of lower lobe, right bronchus or lung (principal); J96.01 Acute respiratory failure with hypoxia; I24.8 Other forms of acute ischemic heart disease; J91.0 Malignant pleural effusion; J98.11 Atelectasis; D72.829 Elevated white blood cell count, unspecified; D64.9 Anemia, unspecified; N40.0 Benign prostatic hyperplasia without lower urinary tract symptoms; R77.8 Other specified abnormalities of plasma proteins; R00.1 Bradycardia, unspecified; K21.9 Gastro-esophageal reflux disease without esophagitis; I44.0 Atrioventricular block, first degree; I10 Essential (primary) hypertension; E11.9 Type 2 diabetes mellitus without complications; Z79.899 Other long term (current) drug therapy; Z86.718 Personal history of other venous thrombosis and embolism; Z92.25 Personal history of immunosuppression therapy; Z79.01 Long term (current) use of anticoagulants; Z88.5 Allergy status to narcotic agent; Z79.4 Long term (current) use of insulin; Z79.52 Long term (current) use of systemic steroids; Z90.49 Acquired absence of other specified parts of digestive tract; Z87.891 Personal history of nicotine dependence
CPT/HCPCS: 32555; 36415; 71045; 71260; 80048; 80053; 80069; 82945; 82947; 83615; 83880; 84145; 84155; 84157; 84484; 85025; 85520; 85610; 85730; 87070; 87205; 88108; 88305; 88341; 88342; 89051; 93005; 93010; 93308; 93321; 94760; 96374-59; 96375; 99285-25; A9270; G0378; J0456; J0696; J1815; J1940; J7050; J7512; Q9967

== ENCOUNTER 2022-06-18 21:20 | Inpatient (IN) | payer MEDICARE, OTHER ==
[~2022-06-18] VITALS: Ht 175.3 cm; Wt 99.9 kg
[~2022-06-18 21:20] MED LIST changes: +AZIT250 PO; +BENZ100A PO; +BUTALBITAL-ASA1 EACH PO; +CEPH500 PO; +GUAI600T33 PO; +LACT PO; +METOPROLOL TART25 MG PO; +ROSU5 PO
[2022-06-18 22:33] LABS: BASOPHILS ABSOLUTE AUTO 0.06 K/mm3 (0.00-0.23); BASOPHILS PERCENT AUTO 0 % (0-2); EOSINOPHILS ABSOLUTE AUTO 0.21 K/mm3 (0.00-0.68); EOSINOPHILS PERCENT AUTO 1 % (0-6); Hematocrit 34.7 % (37.0-53.0); Hemoglobin 11.6 g/dL (13.5-17.5); IMMATURE GRAN ABSOLUTE AUTO 0.21 K/mm3 (0.00-0.10); IMMATURE GRAN PERCENT AUTO 1 % (0-1); LYMPHOCYTES ABSOLUTE AUTO 1.71 K/mm3 (0.84-5.20); LYMPHOCYTES PERCENT AUTO 10 % (21-46); MONOCYTES PERCENT AUTO 10 % (4-13); Mean Corpuscular HGB 30.2 pg (26.0-34.0); Mean Corpuscular HGB Conc 33.4 g/dL (31.5-36.5); Mean Corpuscular Volume 90 fL (80-100); Mean Platelet Volume 10.6 fL (9.1-12.4); NEUTROPHILS ABSOLUTE AUTO 13.06 K/mm3 (1.96-9.15); NEUTROPHILS PERCENT AUTO 77 % (41-73); Platelet Count 248 K/mm3 (150-400); RDW Coefficient Variation 13.3 % (11.7-14.2); RDW Standard Deviation 43.9 fL (35.1-46.3); Red Blood Cell Count 3.84 M/mm3 (4.30-5.90); White Blood Cell Count 16.95 K/mm3 (4.00-11.30)
[2022-06-18 22:54] LABS: Bun/Creatinine Ratio 29.1 (12.0-20.0); Calcium, Blood 9.3 mg/dL (8.5-10.1); Creatinine, Blood 1.03 mg/dL (0.60-1.20); Potassium, Blood 4.6 mmol/L (3.5-5.5)
[2022-06-19 06:03] LABS: Hematocrit 33.7 % (37.0-53.0); Hemoglobin 11.3 g/dL (13.5-17.5); Mean Corpuscular HGB 30.1 pg (26.0-34.0); Mean Corpuscular HGB Conc 33.5 g/dL (31.5-36.5); Mean Corpuscular Volume 90 fL (80-100); Mean Platelet Volume 10.6 fL (9.1-12.4); Platelet Count 258 K/mm3 (150-400); RDW Coefficient Variation 13.3 % (11.7-14.2); RDW Standard Deviation 43.7 fL (35.1-46.3); Red Blood Cell Count 3.75 M/mm3 (4.30-5.90); White Blood Cell Count 15.44 K/mm3 (4.00-11.30)
[2022-06-19 06:27] LABS: Bun/Creatinine Ratio 28.7 (12.0-20.0); Calcium, Blood 9.6 mg/dL (8.5-10.1); Creatinine, Blood 1.08 mg/dL (0.60-1.20); Potassium, Blood 4.9 mmol/L (3.5-5.5)
[2022-06-19 10:34] LABS: International Normalized Ratio 1.14; Prothrombin Time Results 11.9 Sec (9.7-11.5)
[2022-06-19 15:44] LABS: International Normalized Ratio 1.11; Prothrombin Time Results 11.6 Sec (9.7-11.5)
--- NOTE | 2022-06-19 18:07 | NUR ---
CONSULTATIONS: CONSULATION CALLED TO DR. TERESO DEE THIS AFTERNOON. STRIPPER BLACK AND WHITE CONFIRMED HE IS AWARE OF PATIENT'S HOSPITALIZATION. PER DR. CAT'S REQUEST, CALLED AGAIN IN REGARDS TO CONSULTATION WITH DR. CHAPPELL FOR PLEUREX CATHETER PLACEMENT. ABLE TO SPEAK WITH ON-CALL LINE AND RE-ITERATE NEED FOR CONSULATION.
--- NOTE | 2022-06-19 19:51 | NUR ---
END OF SHIFT SUMMARY: PATIENT ARRIVED TO UNIT AROUND 1420. PATIENT ALERT AND ORIENTED X4. PATIENT ABLE TO TRANSFER FROM [facility] TO [facility]. HOWEVER, THIS CAUSED AN INCREASE IN HIS SHORTNESS OF BREAH. PATIENT EXPERIENCES MARKED SHORTNESS OF BREATH WITH ACTIVITY OR A COUGHING FIT. PATIENT AND PATIENT'S FAMILY REPORT THAT HIS BREATHING AND COUGHING IS MUCH IMPROVED OVER WHEN HE CAME TO THE ED YESTERDAY. LUNG SOUNDS DIMINISHED AND COARSE THROUGHOUT. PATIENT REPORTS THAT HE HAS BEEN UNABLE TO SLEEP WELL FOR ABOUT 2 WEEKS RELATED TO SHORTNESS OF BREATH. RECLINER IN ROOM AND PATIENT SITTING UP WITH PILLOWS TO FACILITATE IMPROVED SLEEP TONIGHT. DISCUSSED PLAN WITH DR. CHAPPELL. PER DR. CHAPPELL, PLEUREX CATHETER PLACEMENT IS UNABLE TO OCCUR UNTIL MORE FLUID HAS BUILT UP. DR. CAT NOTIFIED. PATIENT HAS A SUPPORTIVE AND SON THAT ALSO PROVIDE ASSISTANCE AT HOME.
--- NOTE | 2022-06-20 04:52 | NUR ---
Shift Summary Pt rcvd IV heparin drip for DVT. Was placed on humidified O2 running at 5L. Displays some dyspnea at rest while on O2. Unable to get comfortable, opted to spend the night in a recliner chair, got very little to no sleep. Pt has 3+ edema BLE which he states is due to cancer meds. Per day shift report, pt may need chest tube drain soon. Rcvd long and short acting insulin per sliding scale. VSS, no acute events, pleasant and cooperative with care.
[2022-06-20 06:26] LABS: BASOPHILS ABSOLUTE AUTO 0.07 K/mm3 (0.00-0.23); BASOPHILS PERCENT AUTO 0 % (0-2); EOSINOPHILS ABSOLUTE AUTO 0.01 K/mm3 (0.00-0.68); EOSINOPHILS PERCENT AUTO 0 % (0-6); Hemoglobin 11.4 g/dL (13.5-17.5); IMMATURE GRAN ABSOLUTE AUTO 0.31 K/mm3 (0.00-0.10); IMMATURE GRAN PERCENT AUTO 1 % (0-1); LYMPHOCYTES ABSOLUTE AUTO 2.01 K/mm3 (0.84-5.20); LYMPHOCYTES PERCENT AUTO 8 % (21-46); MONOCYTES ABSOLUTE AUTO 1.98 K/mm3 (0.16-1.47); MONOCYTES PERCENT AUTO 8 % (4-13); Mean Corpuscular HGB 29.9 pg (26.0-34.0); Mean Corpuscular HGB Conc 33.5 g/dL (31.5-36.5); Mean Corpuscular Volume 89 fL (80-100); Mean Platelet Volume 10.2 fL (9.1-12.4); NEUTROPHILS ABSOLUTE AUTO 19.67 K/mm3 (1.96-9.15); NEUTROPHILS PERCENT AUTO 82 % (41-73); Platelet Count 323 K/mm3 (150-400); RDW Coefficient Variation 13.3 % (11.7-14.2); RDW Standard Deviation 43.4 fL (35.1-46.3); Red Blood Cell Count 3.81 M/mm3 (4.30-5.90); White Blood Cell Count 24.05 K/mm3 (4.00-11.30)
[2022-06-20 06:47] LABS: Bun/Creatinine Ratio 36.4 (12.0-20.0); Calcium, Blood 9.9 mg/dL (8.5-10.1); Creatinine, Blood 1.18 mg/dL (0.60-1.20); Potassium, Blood 4.6 mmol/L (3.5-5.5)
--- NOTE | 2022-06-20 19:47 | NUR ---
SHIFT SUMMARY PT AWAKE AT START OF SHIFT, SITTING UP IN RECLINER. PT SOB AND HAVING DIFFICULTY GETTING COMFORTABLE D/T BREATHING. ADMITTED FOR BL PLEURAL EFFUSIONS, PT ON HEPARIN DRIP. PT UP TO BTHRM AT START OF SHIFT, CONFUSED AND TAKING O2 OFF X3 JUST GETTING TO BATHRM. EACH TIME PT REMOVED O2, HE WOULD BECOME SO SOB THAT HE WOULD HAVE TO GRAB THE WALL. PT REMINDED EACH TIME TO LEAVE O2 ON WHILE UP, BUT SEEMED TO BE CONFUSED AND WOULD IMMEDIATELY TAKE IT BACK OFF. PT ASSISTED BACK TO RECLINER AFTER BM AND VOID. FAMILY IN TO VISIT AT BS EARLY, PT HAD CALLED THEM TO SAY HE WAS BEING D/C'D. DR CAT IN TO SEE PT AND FAMILY AND DISCUSS PLAN OF CARE. CHEST CT ORDERED. ADDITIONAL IV SITE PLACED FOR CT CONTRAST, HEPARIN INFUSING IN ORIGINAL IV. DR GARCIA IN TO SEE PT AND FAMILY AFTER CT. NEW ORDERS PLACED. PT TO HAVE PLEUREX DRAIN PLACED TO R SIDE IN AM. PT TO HAVE HEPARIN DRIP STOPPED AT MT AND TO BE NPO AT THAT TIME. AT THIS TIME, SX SCHEDULED FOR 0800 IN AM. PT SEEMED TO BE DOING BETTER THIS AFTERNOON AND EVENING. ABLE TO TAKE A NAP IN CHAIR FOR A WHILE AND BREATHING MUCH EASIER. DENIED FURTHER NEEDS. CALL LT IN REACH. REPORT GIVEN TO ONCOMING RN.
[2022-06-21 03:09] LABS: BASOPHILS ABSOLUTE AUTO 0.04 K/mm3 (0.00-0.23); BASOPHILS PERCENT AUTO 0 % (0-2); EOSINOPHILS ABSOLUTE AUTO 0.04 K/mm3 (0.00-0.68); EOSINOPHILS PERCENT AUTO 0 % (0-6); Hemoglobin 11.2 g/dL (13.5-17.5); IMMATURE GRAN ABSOLUTE AUTO 0.23 K/mm3 (0.00-0.10); IMMATURE GRAN PERCENT AUTO 1 % (0-1); LYMPHOCYTES ABSOLUTE AUTO 2.31 K/mm3 (0.84-5.20); LYMPHOCYTES PERCENT AUTO 13 % (21-46); MONOCYTES ABSOLUTE AUTO 2.06 K/mm3 (0.16-1.47); MONOCYTES PERCENT AUTO 12 % (4-13); Mean Corpuscular HGB 29.9 pg (26.0-34.0); Mean Corpuscular HGB Conc 33.9 g/dL (31.5-36.5); Mean Corpuscular Volume 88 fL (80-100); Mean Platelet Volume 9.8 fL (9.1-12.4); NEUTROPHILS ABSOLUTE AUTO 12.92 K/mm3 (1.96-9.15); NEUTROPHILS PERCENT AUTO 74 % (41-73); Platelet Count 306 K/mm3 (150-400); RDW Coefficient Variation 13.4 % (11.7-14.2); RDW Standard Deviation 43.6 fL (35.1-46.3); Red Blood Cell Count 3.74 M/mm3 (4.30-5.90)
--- NOTE | 2022-06-21 07:35 | NUR ---
Shift Summary Heparin drip stopped at 0000 per doctor's orders, plan to place chest tube today at 0800. Rcvd short acting insulin per sliding scale and long acting. Pt remained very uncomfortable and opted to stay in the recliner t/o the night. Discomfort is due to difficulty breathing. Pt on 5L O2 NC. VSS, pleasant and cooperative with care.
--- NOTE | 2022-06-21 08:00 | NUR ---
pt left for surgery via gurabhijeet with day surg nurse.
--- NOTE | 2022-06-21 08:45 | NUR ---
06/21/22 0845 Marin Salas 2G ANCEF GIVEN BY ANESTHESIA AT 0815
--- NOTE | 2022-06-21 10:51 | NUR ---
pt returned to room post thoracentesis and placement of plurex, he was able to stand and transfer from [facility] to chair, a/ox3, pleasant and cooperative with care, family at bedside, lungs are course t/o, no air auscultated in lllobe, turned up to six liters as sats 88% on 5, is over 90 at this time, no cough noted, hrr, b/l le edeama noted, iv site is clear and patent, btx4, abd round soft nontender, voids via urinal and is briefed, skin has dark colored skin to b/l le, otherwise c/w/d, maew, irving, call light in reach.
--- NOTE | 2022-06-21 18:18 | NUR ---
pt did well after surgery, tolerating food, family at bedside, pallative care nurse came in to teach about how to use the plurex, he slept when left undisturbed, states he feels better, no further changes this shift. call light in reach.
[2022-06-22 00:21] LABS: BASOPHILS ABSOLUTE AUTO 0.04 K/mm3 (0.00-0.23); BASOPHILS PERCENT AUTO 0 % (0-2); EOSINOPHILS ABSOLUTE AUTO 0.01 K/mm3 (0.00-0.68); EOSINOPHILS PERCENT AUTO 0 % (0-6); Hematocrit 32.3 % (37.0-53.0); Hemoglobin 11.1 g/dL (13.5-17.5); IMMATURE GRAN ABSOLUTE AUTO 0.29 K/mm3 (0.00-0.10); IMMATURE GRAN PERCENT AUTO 2 % (0-1); LYMPHOCYTES ABSOLUTE AUTO 2.76 K/mm3 (0.84-5.20); LYMPHOCYTES PERCENT AUTO 15 % (21-46); MONOCYTES ABSOLUTE AUTO 1.77 K/mm3 (0.16-1.47); MONOCYTES PERCENT AUTO 10 % (4-13); Mean Corpuscular HGB 30.2 pg (26.0-34.0); Mean Corpuscular HGB Conc 34.4 g/dL (31.5-36.5); Mean Corpuscular Volume 88 fL (80-100); NEUTROPHILS ABSOLUTE AUTO 13.31 K/mm3 (1.96-9.15); NEUTROPHILS PERCENT AUTO 73 % (41-73); Platelet Count 200 K/mm3 (150-400); RDW Coefficient Variation 13.2 % (11.7-14.2); RDW Standard Deviation 42.7 fL (35.1-46.3); Red Blood Cell Count 3.68 M/mm3 (4.30-5.90); White Blood Cell Count 18.18 K/mm3 (4.00-11.30)
[2022-06-22 00:38] LABS: Bun/Creatinine Ratio 38.1 (12.0-20.0); Calcium, Blood 8.9 mg/dL (8.5-10.1); Creatinine, Blood 1.18 mg/dL (0.60-1.20); Potassium, Blood 4.1 mmol/L (3.5-5.5)
--- NOTE | 2022-06-22 06:20 | NUR ---
SUMMARY NO NEW ISSUES DURING THE SHIFT. PT HAS BEEN SLEEPING IN CHAIR WITHOUT ISSUE. PT DRAIN SITE IS C/D/I. PT REPORTS BREATHING EASIER AND ABLE TO SLEEP. CALL LIGHT IN REACH.
--- NOTE | 2022-06-22 08:00 | NUR ---
pt slept in the chair last night is more comfortable there with breathing, a/ox3, pleasant and cooperative with care, family at bedside, he states he's feeling better, lungs have more air movement than yesterday, continues on 5 liters 02, no cough noted, hrr, distant sounds, 4+ edema noted to b/l le, encouraged to keep them elevated, iv sites are clear and patent, infusing heperin gtt as ordered, btx4, abd flat soft nontender, briefs in place for incont but will also use the bedside cammode, skin c/w/d, irving delgadillo, call light in reach.
--- NOTE | 2022-06-22 10:58 | NUR ---
pallative care nurse in to see pt, teaching how to use plurex drain at home, family in attendence. call light in reach.
--- NOTE | 2022-06-22 14:39 | NUR ---
Met with pt's sons yesterday at bedside to discuss newly placed PleurX drain, specifically questions about draining it. Pt has stage IV small cell lung cancer, and was most recently discharged from [facility] on 06/16/22. Returned on 06/18/22 with increased SOB. He has been on immunotherapy treatment with Dr. Daniels. The PleurX was placed yesterday to assist with fluid buildup in the pleural space. Plan is for pt to return home with . Although Home Health SN will be primarily draining the PleurX, both the and son are interested in understanding the basics of how it works and how to drain it. Demonstrated how to drain PleurX, as well as resources for ongoing education. Palliative care will continue with supportive visits as needed.
--- NOTE | 2022-06-22 18:13 | NUR ---
pt has sat in the chair all day, family had teaching today about the plurex, no complaints or needs, call light in reach.
[2022-06-23 02:16] LABS: Bun/Creatinine Ratio 32.8 (12.0-20.0); Creatinine, Blood 1.31 mg/dL (0.60-1.20); Potassium, Blood 3.6 mmol/L (3.5-5.5)
[2022-06-23 02:18] LABS: BASOPHILS ABSOLUTE AUTO 0.07 K/mm3 (0.00-0.23); BASOPHILS PERCENT AUTO 0 % (0-2); EOSINOPHILS ABSOLUTE AUTO 0.29 K/mm3 (0.00-0.68); EOSINOPHILS PERCENT AUTO 2 % (0-6); Hemoglobin 11.4 g/dL (13.5-17.5); IMMATURE GRAN ABSOLUTE AUTO 0.42 K/mm3 (0.00-0.10); IMMATURE GRAN PERCENT AUTO 3 % (0-1); LYMPHOCYTES ABSOLUTE AUTO 3.41 K/mm3 (0.84-5.20); LYMPHOCYTES PERCENT AUTO 21 % (21-46); MONOCYTES ABSOLUTE AUTO 1.47 K/mm3 (0.16-1.47); MONOCYTES PERCENT AUTO 9 % (4-13); Mean Corpuscular HGB 29.5 pg (26.0-34.0); Mean Corpuscular HGB Conc 33.5 g/dL (31.5-36.5); Mean Corpuscular Volume 88 fL (80-100); Mean Platelet Volume 10.8 fL (9.1-12.4); NEUTROPHILS ABSOLUTE AUTO 10.93 K/mm3 (1.96-9.15); NEUTROPHILS PERCENT AUTO 66 % (41-73); Platelet Count 222 K/mm3 (150-400); RDW Coefficient Variation 13.3 % (11.7-14.2); RDW Standard Deviation 43.5 fL (35.1-46.3); Red Blood Cell Count 3.86 M/mm3 (4.30-5.90); White Blood Cell Count 16.59 K/mm3 (4.00-11.30)
--- NOTE | 2022-06-23 05:05 | NUR ---
SUMMARY: NO ACUTE EVENTS OVERNIGHT. PATIENT ON HEPARIN DRIP. TITRATED PER PHARMACY ORDERS. NOTIFIED PHARMACY WITH PTT RESULTS. PATIENT HAS PERSISTENT COUGH. LUNG SOUNDS VERY DIMINISHED ON LEFT SIDE. PLEURX CATH TO R SIDE. PATIENT MOSTLY INDEPENDENT IN ROOM. ON 5L NC. VSS. NO ACUTE EVENTS OVERNIGHT.
--- NOTE | 2022-06-24 04:45 | NUR ---
SUMMARY: PATIENT STATES HE HAS BEEN FEELING BETTER. R LUNGS CRACKLES IN BASES, L LUNGS DIMINISHED LOWER LOBE. PLAN FOR PLEURX DRAIN PLACEMENT ON L SIDE TODAY. NPO SINCE MIDNIGHT. HEPPARIN DRIP STOPPED THIS MORNING FOR PROCEDURE. PATIENT INDEPENDENT IN ROOM. VERY EDEMATOUS LOWER EXTREMITIES.
[2022-06-24 05:59] LABS: Hematocrit 33.3 % (37.0-53.0); Hemoglobin 11.2 g/dL (13.5-17.5); Mean Corpuscular HGB 29.6 pg (26.0-34.0); Mean Corpuscular HGB Conc 33.6 g/dL (31.5-36.5); Mean Corpuscular Volume 88 fL (80-100); Mean Platelet Volume 11.1 fL (9.1-12.4); NRBC ABSOLUTE 0.02 K/mm3 (0.00-0.02); NRBC Auto 0.1 /100 WBC (0.0-0.2); Platelet Count 219 K/mm3 (150-400); RDW Coefficient Variation 13.4 % (11.7-14.2); RDW Standard Deviation 43.3 fL (35.1-46.3); Red Blood Cell Count 3.78 M/mm3 (4.30-5.90); White Blood Cell Count 15.62 K/mm3 (4.00-11.30)
[2022-06-24 06:30] LABS: Creatinine, Blood 1.12 mg/dL (0.60-1.20); Potassium, Blood 3.5 mmol/L (3.5-5.5)
--- NOTE | 2022-06-24 18:19 | NUR ---
SHIFT SUMMARY PT ALERT AND ORIENTED ,CALLS APPROPRIATELY. PT WITH R SIDE PLEUREX DRAIN IN PLACE AT BEGINING OF SHIFT. PT DOWN TO SURGERY FOR L SIDED PLEUREX DRAIN PLACEMENT THIS AFTERNOON, 1800 ML DRAINED DURING PROCEDURE. DRESSINGS CDI. PT REMAINS ON 4L NC, SPO2 > 92%. HEPARIN D/C'D, XARELTO STARTED THIS EVENING. CALL LIGHT WITHIN REACH.
--- NOTE | 2022-06-24 20:40 | NUR ---
THE PATIENT IS A 76 YEAR-OLD MALE WITH A DIAGNOSIS OF BILATERAL PLEURAL EFFUSIONS. A&OX4. PATIENT EFFECTIVELY COMMUNICATES NEEDS. INDEPENDNET. CALL LIGHT WITHIN REACH. BED LOW AND LOCKED. BILATERAL PLEURX DRAINS IN PLACE. VSS. O2 >90% ON 4L. NO ACUTE CONCERNS AT THIS TIME. THIS RN WILL CONTINUE TO CLOSELY MONITOR.
--- NOTE | 2022-06-25 03:23 | NUR ---
VENDING MANAGER SUMMARY THE PATIENT IS A 76 YEAR-OLD MALE WITH A DIAGNOSIS OF BILATERAL PLEUAL EFFUSIONS. VSS. PATIENT IS DONNING 4L O2 NC AND MAINTAINING O2 >90%. A&OX4. PATIENT EFFECTIVELY COMMUNICATES NEEDS. NO PAIN REPORTED THIS SHIFT. PATIENT HAS BILATERAL PLEURX SITES. OCCLUSIVE DRESSINGS C/D/I. 3+ PITTING EDEMA TO BLE/FEET; ELEVATION ENCOURAGED. HS CB. INSULIN PROVIDED PER EMAR. NO ACUTE CONCERNS THIS SHIFT. PATIENT REPORTS IMPROVED BREATHING AFTER RIGHT PLEURX PLACEMENT YESTERDAY 06/24. THIS RN WILL CONTINUE TO CLOSELY MONITOR. CALL LIGHT WITHIN REACH. BED LOW AND LOCKED.
[2022-06-25 07:10] LABS: Bun/Creatinine Ratio 28.1 (12.0-20.0); Creatinine, Blood 1.14 mg/dL (0.60-1.20); Potassium, Blood 4.2 mmol/L (3.5-5.5)
--- NOTE | 2022-06-25 16:08 | NUR ---
SHIFT SUMMARY PT AWAKE, LYING IN BED AT START OF SHIFT, WITH LE'S ELEVATED FOR A CHANGE. PT USUALLY SITS UPRIGHT WITH LE'S DEPENDENT, INCREASING SWELLING TO LEGS AND FEET. PT LOOKING AND FEELING BETTER, BREATHING EASIER; IMPROVED WITH PLEUREX DRAIN PLACEMENTS. IN RM AT BS MOST OF THE TIME. NO C/O. DR BRAVO IN TO SEE PT THIS AM AND DISCUSS PLAN OF CARE. WILL CONTINUE IV LASIX ONE MORE DAY AND ATTEMPT TO DECREASE O2 NEEDS WELL. TO REEVAL PT IN AM. PT IS INDEPENDENT TO BSC. NO C/O PAIN. ABLE TO MAKE NEEDS KNOWN. CALL LT IN REACH.
--- NOTE | 2022-06-25 17:04 | NUR ---
Pt already had R side PleurX drain placed last week, and yesterday got a L side pleurX as well. X-Ray today shows correct placement of bilateral drains. Pt c/o increasing cough as well as R sided pain and SOB. Pt and family admittedly feel anxiety about having to "drain the fluid off" pt's lungs. Again reassured them there will be HH RN's available to drain as well as teach them to drain PleurX as needed. Educated on PleurX drain with son Yifan performing hands on training. Appears to understand education and training, but may benefit from additional training until he feels comfortable on his own. Pt tolerated well. Drained a total of 75cc's of light red fluid.
--- NOTE | 2022-06-26 08:00 | NUR ---
pt sitting up in the chair, spouce in room, he looks better than last week, states he's feeling good, breathing easier, lungs are course, but more air movement auscultated, has a nonproductive cough, down to 1 liter 02 via n/c, resp even and unlabored, hrr, 3-4+ edema noted to b/l le, cap refill <3sec, vs stable, afebrile, iv sites to lac and lfa, sites are clear and patent, btx4, abd round soft nontender, voids without diff, skin c/w/d, maew, irving, has plurex drains to r and l sides, sites are clear, call light in reach.
[2022-06-26 08:58] LABS: Bun/Creatinine Ratio 28.9 (12.0-20.0); Calcium, Blood 8.9 mg/dL (8.5-10.1); Creatinine, Blood 1.14 mg/dL (0.60-1.20); Potassium, Blood 3.2 mmol/L (3.5-5.5)
[2022-06-26] MEDS ORDERED: HUMALOG JU100 UNIT/2 SC (13:41)
[2022-06-26] MEDS ORDERED: ROSU5 PO (15:01)
--- NOTE | 2022-06-26 15:24 | NUR ---
Pt has had an o2 eval and no o2 needed, will be discharging soon, iv's x2 removed intact, went over discharge instructions with him son and spouce, they verbalize understanding, new meds faxed to [facility] and [facility], will leave via wheelchair with tinware lithograph press operator in attendence.
--- NOTE | 2022-06-26 15:29 | NUR ---
left via wheelchair with family and crepe laminator operator
== END 2022-06-26 15:32 | disposition home health service (06) | DRG 180 ==
LOC: ER 21:20 → MEDS 21:21 → ERHOLD 21:21 → MEDS 06-19 13:49
PROVIDERS: Emergency Medicine; Hospitalist; Internal Medicine; Surgery; ADMIT Internal Medicine
PROC: 0W9930Z Drainage of Right Pleural Cavity with Drainage Device, Percutaneous Approach (ICD-10-PCS; 2022-06-21)
PROC: 0W9B30Z Drainage of Left Pleural Cavity with Drainage Device, Percutaneous Approach (ICD-10-PCS; principal; 2022-06-24 13:30)
DX: C34.31 Malignant neoplasm of lower lobe, right bronchus or lung (principal); J96.01 Acute respiratory failure with hypoxia; J91.0 Malignant pleural effusion; N18.30 Chronic kidney disease, stage 3 unspecified; R60.0 Localized edema; E11.22 Type 2 diabetes mellitus with diabetic chronic kidney disease; E87.70 Fluid overload, unspecified; K21.9 Gastro-esophageal reflux disease without esophagitis; D63.1 Anemia in chronic kidney disease; E11.65 Type 2 diabetes mellitus with hyperglycemia; D72.829 Elevated white blood cell count, unspecified; N40.0 Benign prostatic hyperplasia without lower urinary tract symptoms; I12.9 Hypertensive chronic kidney disease with stage 1 through stage 4 chronic kidney disease, or unspecified chronic kidney disease; N43.3 Hydrocele, unspecified; E78.5 Hyperlipidemia, unspecified; E87.5 Hyperkalemia; D47.2 Monoclonal gammopathy; Z86.718 Personal history of other venous thrombosis and embolism; Z90.49 Acquired absence of other specified parts of digestive tract; Z87.891 Personal history of nicotine dependence; Z88.5 Allergy status to narcotic agent; Z79.899 Other long term (current) drug therapy; Z79.01 Long term (current) use of anticoagulants; Z79.2 Long term (current) use of antibiotics; Z79.4 Long term (current) use of insulin; Z92.25 Personal history of immunosuppression therapy; Z79.52 Long term (current) use of systemic steroids
CPT/HCPCS: 36415; 71045; 71260; 80048; 82947; 83880; 84145; 85025; 85027; 85610; 85730; 94640; 94664; 94760; 94761; 96365; 96375; 99285-25; A9270; C1729; C1769; G0378; J0690; J1100; J1644; J1815; J1940; J2001; J2405; J2704; J2795; J2930; J3010; J7120; Q9967

== ENCOUNTER 2022-09-10 08:04 | Day surgery (SDC) | payer MEDICARE, OTHER ==
[~2022-09-10] VITALS: Ht 175.3 cm; Wt 87.6 kg
[~2022-09-10 08:04] MED LIST changes: +HUMALOG JU100 UNIT/2 SC
--- NOTE | 2022-09-10 10:41 | NUR ---
Florecita Paws warming gown applied. Surgical site prepped with 2% Chlorhexidine cloth wipe. History, Chart, Medications and Allergies reviewed before start of procedure.Lungs clear T/O to Auscultation. Patient confirms NPO status and agrees with scheduled surgery. Pre-Op teaching done. Pt verbalizes understanding. Patient States Post-Procedure ride home has been arranged. Patient reports completing Chlorhexadine shower X2 prior to admission to hospital.
--- NOTE | 2022-09-10 12:26 | NUR ---
PT FEELS WEAK STANDING BUT THIS IS HIS BASELINE ACCORDING TO HIS . HE USES A WALKER AT HOME TO AMBULATE. PT ABLE TO TRANSFER TO W/C W/O INCIDENT. D/C TO HOME W/ WRITTEN INSTRUCTIONS. PT TO RESUME ELIQUIS TOMORROW FOR TX OF LLE BLOOD CLOT.
== END 2022-09-10 22:51 | disposition home or self-care (01) ==
LOC: ORSCMMR 08:04 → ORD 10:00 → ORSCMMR 22:51
PROVIDERS: Surgery
PROC: 0WPB00Z Removal of Drainage Device from Left Pleural Cavity, Open Approach (ICD-10-PCS; principal; 2022-09-10 10:00)
PROC: 0WP900Z Removal of Drainage Device from Right Pleural Cavity, Open Approach (ICD-10-PCS; principal; 2022-09-10 10:00)
DX: C34.90 Malignant neoplasm of unspecified part of unspecified bronchus or lung (principal); J91.0 Malignant pleural effusion; I25.10 Atherosclerotic heart disease of native coronary artery without angina pectoris; I12.9 Hypertensive chronic kidney disease with stage 1 through stage 4 chronic kidney disease, or unspecified chronic kidney disease; E11.22 Type 2 diabetes mellitus with diabetic chronic kidney disease; N18.9 Chronic kidney disease, unspecified; Z79.899 Other long term (current) drug therapy; Z79.84 Long term (current) use of oral hypoglycemic drugs; Z79.01 Long term (current) use of anticoagulants
CPT/HCPCS: 82947; J0690; J1885; J2250; J2795; J3010; J7120

== ENCOUNTER 2024-05-03 18:31 | Emergency (ER) | payer MEDICARE, OTHER ==
[~2024-05-03] VITALS: Ht 175.3 cm; Wt 104.3 kg
[~2024-05-03 18:31] MED LIST changes: +ASCO500 PO; +CALCIUM CARBON500 M4 PO; +CEFD300 PO; +DEXA4 PO; +FOLI1 PO; +GEMCITABINE HCL IV; +ONDA4 PO; +PROBIOTIC1 EA14 PO; +QUERCETIN COMP1 EACH PO; +SOAANZ20 M3 PO; +THERA-D2000 UNIT PO; +TORSE20 PO; +VISBIOME 112.51 EACH PO; +VIT D3-VIT K21 EACH PO; +VITAMIN D5000 UNIT PO
[2024-05-03 19:17] LABS: Magnesium, Blood 2.2 mg/dL (1.6-2.4); Phosphorus, Blood 2.5 mg/dL (2.5-4.9)
[2024-05-03 19:28] LABS: Base Excess Venous 9.2 mmol/L; Bicarbonate Venous 30.6 mmol/L (24.0-30.0); PCO2 Venous 50.1 mmHg (38-42); pH Blood Venous 7.43 (7.34-7.37)
[2024-05-03] MEDS ORDERED: Insulin Human Lispro 100 Units/ML 3ML Syringe SC ONE (20:10)
[2024-05-03] MEDS ORDERED: ADMELOG SO100 UNIT/2 SC ×2 (21:36→21:51)
[2024-05-03 22:00] VITALS: BP 134/68
[2024-05-03 22:35] LABS: Bun/Creatinine Ratio 29.3 (12.0-20.0); Calcium, Blood 9.1 mg/dL (8.5-10.1); Creatinine, Blood 1.5 mg/dL (0.60-1.20); Potassium, Blood 2.8 mmol/L (3.5-5.5)
== END 2024-05-03 22:27 | disposition home or self-care (01) ==
LOC: ER 18:31
PROVIDERS: Student in an Organized Health Care Education/Training Program
DX: E11.65 Type 2 diabetes mellitus with hyperglycemia (principal); I45.2 Bifascicular block; E11.22 Type 2 diabetes mellitus with diabetic chronic kidney disease; I13.0 Hypertensive heart and chronic kidney disease with heart failure and stage 1 through stage 4 chronic kidney disease, or unspecified chronic kidney disease; N18.30 Chronic kidney disease, stage 3 unspecified; I50.32 Chronic diastolic (congestive) heart failure; R60.9 Edema, unspecified; K21.9 Gastro-esophageal reflux disease without esophagitis; Z87.891 Personal history of nicotine dependence; Z79.4 Long term (current) use of insulin; Z79.899 Other long term (current) drug therapy; Z88.5 Allergy status to narcotic agent; Z88.8 Allergy status to other drugs, medicaments and biological substances
CPT/HCPCS: 36415; 71046; 80048; 82803; 82947; 83735; 83930; 84100; 93005; 93010; 99285-25; J1815

== ENCOUNTER → 2024-07-25 | Outpatient (CLI) | payer MEDICARE, OTHER ==
[~2024-07-25] MED LIST changes: +ADMELOG SO100 UNIT/2 SC; +DERMACINRX FOL1 EAC2 PO; +INSULANI; +TORS10 PO
== END | disposition home or self-care (01) ==
LOC: LAB 07:32 → LAB SHORT 07:32
DX: L60.2 Onychogryphosis (principal); B35.1 Tinea unguium
CPT/HCPCS: 88305; 88312

== ENCOUNTER 2024-07-31 16:33 | Emergency (ER) | payer MEDICARE, OTHER ==
[~2024-07-31] VITALS: Ht 180.3 cm; Wt 95.2 kg
[~2024-07-31 16:33] MED LIST changes: -DERMACINRX FOL1 EAC2 PO; -INSULANI; -TORS10 PO
[2024-07-31 17:26] LABS: BASOPHILS PERCENT AUTO 1 % (0-2); EOSINOPHILS ABSOLUTE AUTO 0.51 K/mm3 (0.00-0.68); EOSINOPHILS PERCENT AUTO 4 % (0-6); Hemoglobin 12.9 g/dL (13.5-17.5); IMMATURE GRAN ABSOLUTE AUTO 0.06 K/mm3 (0.00-0.10); IMMATURE GRAN PERCENT AUTO 1 % (0-1); LYMPHOCYTES ABSOLUTE AUTO 1.83 K/mm3 (0.84-5.20); LYMPHOCYTES PERCENT AUTO 15 % (21-46); MONOCYTES ABSOLUTE AUTO 1.51 K/mm3 (0.16-1.47); MONOCYTES PERCENT AUTO 13 % (4-13); Mean Corpuscular HGB 29.9 pg (26.0-34.0); Mean Corpuscular HGB Conc 33.9 g/dL (31.5-36.5); Mean Corpuscular Volume 88 fL (80-100); Mean Platelet Volume 9.5 fL (9.1-12.4); NEUTROPHILS ABSOLUTE AUTO 8.05 K/mm3 (1.96-9.15); NEUTROPHILS PERCENT AUTO 67 % (41-73); Platelet Count 188 K/mm3 (150-400); RDW Coefficient Variation 13.8 % (11.7-14.2); RDW Standard Deviation 44.4 fL (35.1-46.3); Red Blood Cell Count 4.31 M/mm3 (4.30-5.90); White Blood Cell Count 12.06 K/mm3 (4.00-11.30)
[2024-07-31 17:42] LABS: International Normalized Ratio 1.33; Prothrombin Time Results 13.9 Sec (9.7-11.5)
[2024-07-31 17:49] LABS: Free Thyroxine 1.21 ng/dL (0.70-1.60)
[2024-07-31 17:51] LABS: Thyroid Stimulating Hormone 3.58 uIU/mL (0.360-4.800)
[2024-07-31 17:52] LABS: Albumin/Globulin Ratio 0.9 (0.8-1.8); Bilirubin, Total 0.4 mg/dL (0.1-1.0); Bun/Creatinine Ratio 18.5 (12.0-20.0); Calcium, Blood 8.8 mg/dL (8.5-10.1); Creatinine, Blood 1.35 mg/dL (0.60-1.20); Globulin, Blood 3.4 g/dL (2.2-4.0); Potassium, Blood 3.5 mmol/L (3.5-5.5); Total Protein, Blood 6.4 g/dL (6.4-8.2)
[2024-07-31 18:00] LABS: CORONAVIRUS COVID-19 AG Negative (NEGATIVE); INFLUENZA A AG Negative (NEGATIVE); INFLUENZA B AG Negative (NEGATIVE)
[2024-07-31] MEDS ORDERED: INSULANI (18:12)
[2024-07-31] MEDS ORDERED: TORS10 PO (18:13)
[2024-07-31] MEDS ORDERED: DERMACINRX FOL1 EAC2 PO (18:14)
[2024-07-31 20:19] VITALS: BP 123/61
== END 2024-07-31 20:25 | disposition short-term general hospital (02) ==
LOC: ER 16:33
PROVIDERS: Student in an Organized Health Care Education/Training Program
DX: I63.232 Cerebral infarction due to unspecified occlusion or stenosis of left carotid arteries (principal); I63.512 Cerebral infarction due to unspecified occlusion or stenosis of left middle cerebral artery; E11.22 Type 2 diabetes mellitus with diabetic chronic kidney disease; N18.30 Chronic kidney disease, stage 3 unspecified; I13.0 Hypertensive heart and chronic kidney disease with heart failure and stage 1 through stage 4 chronic kidney disease, or unspecified chronic kidney disease; I50.32 Chronic diastolic (congestive) heart failure; K21.9 Gastro-esophageal reflux disease without esophagitis; Z85.118 Personal history of other malignant neoplasm of bronchus and lung; Z87.891 Personal history of nicotine dependence; Z79.4 Long term (current) use of insulin; Z79.899 Other long term (current) drug therapy; Z88.5 Allergy status to narcotic agent; Z88.8 Allergy status to other drugs, medicaments and biological substances
CPT/HCPCS: 70450; 70496; 70498; 71045; 80053; 82947; 83735; 83880; 84439; 84443; 84484; 85025; 85610; 85730; 87428-QW; 93005; 93010; 99285-25; Q9967

== ENCOUNTER 2024-08-02 01:54 | Observation (INO) | payer MEDICARE, OTHER ==
[~2024-08-02] VITALS: Wt 99.0 kg
[~2024-08-02 01:54] MED LIST changes: +DERMACINRX FOL1 EAC2 PO; +INSULANI; +TORS10 PO
[2024-08-02] MEDS ORDERED: LORazepam 2 MG/ML 1ML Injection IV PRN (03:55)
[2024-08-02] MEDS ORDERED: Ondansetron HCl 2 MG / ML 2ML Vial IV PRN (03:55)
[2024-08-02] MEDS ORDERED: Acetaminophen 325 MG TABLET PO PRN (03:55)
[2024-08-02] MEDS ORDERED: Atropine Sulfate 1% Opth Soln 2ML BTL SL PRN (03:55)
[2024-08-02] MEDS ORDERED: Scopolamine Hydrobromide Patch TOP PRN (06:00)
[2024-08-02] MEDS ORDERED: Morphine Sulfate 20 MG/1ML 1 ML Oral Syringe SL PRN (06:00)
--- NOTE | 2024-08-02 07:06 | NUR ---
ARRIVAL TO PCU/SHIFT SUMMARY RECEIVED REPORT FROM [facility] MACHINE ERECTOR JOSELO BURNHAM ARRIVED 032. TRANSFERRED FROM [facility] TO PCU BED VIA SLIDE SHEET. PT'S EYES CLOSED, OCCASTONALLY WOULD OPEN EYES TO PAINFUL STIMULI. LEFT SIDED GAZE NOTED WITH DROOP. RIGHT ARM AND BLE FLACCID TO MOVEMENT, ABLE TO MOVE LEFT ARM SPONTANEOUSLY. EYES REACTIVE TO LIGHT, BUT VERY SLUGGISH. SPEECH VERY SLURRED, MOSTLY ONLY MOANS AND GROANS. ARRIVED WITH POLST FORMED COMPLETED AT [facility], DNR/DNI WITH COMFORT CARE MEASURES ONLY. LS COARSE WITH RR RANGING 17-20. MAINTAINING SPO2 89-90% ON RA. GALINDO CATH PLACED AT [facility], DIFFICULT INSERTION PER [facility] NURSE. BLOODY OUTPUT WITH INTERMITTENT CLOTS NOTED. CATH PATENT AND DRAINING TO GRAVITY. BS PRESENT BUT HYPOACTIVE. SKIN OVERALL C/D/I, SMALL REDNESS NOTED ON RIGHT GLUTEAL, BUT IS BLANCHABLE. 2xPIV IN LEFT HAND AND LAC. PT'S SON (CORNELIO) NOTIFIED OF PT'S ARRIVAL TO THE UNIT. WILL GIVE REPORT TO ONCOMING RN.
--- NOTE | 2024-08-02 13:58 | NUR ---
Spiritual care visit conducted. Patient is lying in bed and sounds like he is having agonal breathing. Patient's spouse, Viry, son Yifan and Viry's dtr and family are bedside. After discussing the plans they have for the patient going home on hospice and how the recent events have impacted them, I provided encouragement and prayer. Family responded well and showed signs of being uplifted in their [employer]ecostalism brigette. I will continue to remain available to patient and family.
--- NOTE | 2024-08-03 11:47 | NUR ---
NURSING PCU DISCHARGE SUMMARY: Assumed care of pt @ 0700. Pt resting comfortably, R side flaccid, minimal movement of LUE. Comfort care status, family at bedside, plan of care discussed. Pt medicated and treated t/o shift as indicated, hospice executive director at bedside for admission discussion w/son. Transport arrived at approx 1130 for [facility] transfer home on hospice, medicated for pain prior to slide to [facility], pt appeared comfortable at time of discharge from unit.
== END 2024-08-03 11:36 | disposition hospice, home (50) ==
LOC: PCU 01:54
PROVIDERS: ADMIT Internal Medicine
DX: I63.512 Cerebral infarction due to unspecified occlusion or stenosis of left middle cerebral artery (principal); C34.90 Malignant neoplasm of unspecified part of unspecified bronchus or lung; I13.0 Hypertensive heart and chronic kidney disease with heart failure and stage 1 through stage 4 chronic kidney disease, or unspecified chronic kidney disease; I50.32 Chronic diastolic (congestive) heart failure; N18.30 Chronic kidney disease, stage 3 unspecified; Z51.5 Encounter for palliative care; Z79.899 Other long term (current) drug therapy; Z88.8 Allergy status to other drugs, medicaments and biological substances
CPT/HCPCS: 96374; 96376; A9270; G0378; J2060